=== PATIENT | male | born 1960 | race Caucasian/White ===

== ENCOUNTER → 2017-02-04 | Outpatient (CLI) | payer BC ==
[2017-02-04 09:45] LABS: HEMATOCRIT 48.2 % (42.0-52.0); MEAN CELL VOLUME 91.6 fl (80.0-94.0); MEAN CORPUSCULAR HGB 30.4 pg (27.0-31.0); MEAN CORPUSCULAR HGB CONC 33.2 g/dl (33.0-37.0); MEAN PLATELET VOLUME 8.9 fl (9.6-12.3); RED BLOOD COUNT 5.26 10*6/uL (4.50-5.90); RED CELL DISTRI WIDTH 12.9 % (0-14.5); WHITE BLOOD COUNT 7.3 10*3/uL (4.8-10.8)
[2017-02-04 10:13] LABS: ALBUMIN 4.2 gm/dl (3.1-4.5); BILIRUBIN, DIRECT < 0.1 mg/dL (0.0-0.2); BILIRUBIN, TOTAL 0.5 mg/dl (0.2-1.0); BUN 19 mg/dl (7-24); CARBON DIOXIDE 30 mmol/L (21-32); CHLORIDE 103 mmol/L (98-107); EST GLOM FILT AFRICAN AMERICAN > 60 ml/min; GLUCOSE 100 mg/dL (65-99); POTASSIUM 4.5 mmol/L (3.5-5.1); SGOT/AST 18 IU/L (3-35); SGPT/ALT 24 U/L (12-78); SODIUM 139 mmol/L (136-145)
[2017-02-04 10:14] LABS: ALKALINE PHOSPHATASE 78 U/L (45-117); TOTAL PROTEIN 8.4 gm/dL (6.4-8.2)
== END | disposition home or self-care (01) ==
LOC: LAB 09:26
PROVIDERS: Family Medicine
DX: E11.9 Type 2 diabetes mellitus without complications (principal)

== ENCOUNTER → 2018-02-24 | Outpatient (CLI) | payer BC | END | disposition home or self-care (01) | LOC: LAB 07:48 | DX: E11.9 Type 2 diabetes mellitus without complications (principal) ==

== ENCOUNTER → 2018-05-26 | Outpatient (CLI) | payer OTHER | END | disposition home or self-care (01) | LOC: CT 10:36 | DX: R05 Cough (principal); Z87.891 Personal history of nicotine dependence ==

== ENCOUNTER → 2021-07-11 | Outpatient (CLI) | payer OTHER | END | disposition home or self-care (01) | LOC: MRI 11:00 | PROVIDERS: ATTEND Student in an Organized Health Care Education/Training Program | DX: M75.121 Complete rotator cuff tear or rupture of right shoulder, not specified as traumatic (principal); M19.011 Primary osteoarthritis, right shoulder; M77.8 Other enthesopathies, not elsewhere classified ==